=== PATIENT | female | born 1990 | race Caucasian/White ===

== ENCOUNTER 2018-07-27 21:01 | Emergency (ER) | payer SELFPAY ==
[~2018-07-27] VITALS: Ht 165.1 cm; Wt 79.4 kg
[2018-07-27 21:06] VITALS: BP 140/86
--- NOTE | 2018-07-27 21:10 | NUR ---
PT AMBULATED TO BED 9. ACCOMPANIED BY MOTHER.
--- NOTE | 2018-07-27 21:25 | NUR ---
PT TO ED WITH C/O BILATERAL THUMB REDNESS AND PAIN S/P POSSIBLE INSECT BITE. MILD REDNESS AND SWELLING NOTED TO BILATERAL THUMBS. +ROM. +CMS. PT PLACED INTO BED, PENDING MD NG.
[2018-07-27] MEDS ORDERED: KETOROLAC 60 MG/2 ML VIAL IM ONE (22:00)
[2018-07-27 22:33] VITALS: BP 134/71
--- NOTE | 2018-07-27 22:33 | NUR ---
Patient discharged with v/s stable. Written and verbal after care instructions given and explained. Patient alert, oriented and verbalized understanding of instructions. Ambulatory with steady gait. All questions addressed prior to discharge. ID band removed. Patient advised to follow up with PMD. Rx of KEFLEX, BACTRIM, MOTRIN given. Patient educated on indication of medication including possible reaction and side effects. Opportunity to ask questions provided and answered.
== END 2018-07-27 22:33 | disposition home or self-care (01) ==
LOC: MED 21:01
DX: L03.113 Cellulitis of right upper limb (principal)
CPT/HCPCS: 96372; 99283; J1885

== ENCOUNTER 2019-04-21 07:59 | Emergency (ER) | payer SELFPAY ==
[~2019-04-21] VITALS: Ht 165.1 cm; Wt 73.9 kg
--- NOTE | 2019-04-21 07:59 | NUR ---
PATIENT BIBA TO BED 9 AT [facility] THIS TIME.
[2019-04-21 08:00] VITALS: BP 157/92
--- NOTE | 2019-04-21 08:27 | NUR ---
BIB SELF C/O ANXIETY/ SOB S/P CRYSTAL METH USE 3 HOURS AGO. PATIENT IS TACHYPNEIC WITH SHALLOW RESPIRATION, SP02 100% RA. LUNG SOUNDS CLEAR IN BILAT LOBES, NO ACCESSORY MUSCLE USE ASSESSED. PATIENT IS QUIVERING IN BED AND STATES "IT IS HARD TO CATCH MY BREATH". PT INSTRUCTED TO BREATH IN THROUGH NOSE AND OUT THROUGH MOUTH USING CONTROLLED BREATHS. AAOX4. SKIN IS IN MOIST/IN TACT. NO PMH NKA
[2019-04-21] MEDS ORDERED: NACL 0.9% 1,000 ML IV SCH (08:46)
[2019-04-21] MEDS ORDERED: LORazepam 2 MG/ML VIAL IVP ONE (08:50)
--- NOTE | 2019-04-21 09:45 | NUR ---
PT IS TENSE AND REPORTS TO HAVING VISUAL HALLUCINATIONS. RE-EDUCATED PATIENT ON IMPORTANCE OF CONTROLLED BREATHING AND RELAXATION TECHNIQUES.
--- NOTE | 2019-04-21 10:24 | NUR ---
PT REPORTS ANXIETY HAS DECREASED. NO PAIN/ SOB REPORTED.
[2019-04-21 11:27] VITALS: BP 132/75
--- NOTE | 2019-04-21 11:28 | NUR ---
Patient discharged with v/s stable. Written and verbal after care instructions given and explained. Patient verbalized understanding. Wheel Chair Assisted with by caregiver. All questions addressed prior to discharge. Advised to follow up with PMD.
--- NOTE | 2019-04-25 08:25 | NUR ---
Late entry. Confirmed with RN that 0.9 NS IV completed at 1000
== END 2019-04-21 11:28 | disposition home or self-care (01) ==
LOC: MED 07:59
DX: F15.921 Other stimulant use, unspecified with intoxication delirium (principal); F41.9 Anxiety disorder, unspecified; R00.2 Palpitations
CPT/HCPCS: 81025; 96374; 99283; J2060; J7030

== ENCOUNTER 2021-04-08 13:55 | Observation (INO) | payer OTHER ==
[~2021-04-08] VITALS: Ht 162.6 cm; Wt 95.3 kg
[2021-04-08] MEDS ORDERED: PRETAB PO (14:21)
[2021-04-08 16:28] VITALS: BP 136/80
== END 2021-04-08 16:45 | disposition home or self-care (01) ==
LOC: MLD 13:55
PROVIDERS: ADMIT Obstetrics & Gynecology; ATTEND Obstetrics & Gynecology
DX: O34.63 Maternal care for abnormality of vagina, third trimester (principal); N89.8 Other specified noninflammatory disorders of vagina; Z3A.35 35 weeks gestation of pregnancy
CPT/HCPCS: 76815; G0378; G0379; Q0092

== ENCOUNTER 2021-04-11 12:03 | Observation (INO) | payer OTHER, SELFPAY ==
[~2021-04-11] VITALS: Ht 162.6 cm; Wt 100.7 kg
[~2021-04-11 12:03] MED LIST: PRETAB PO
[2021-04-11 12:45] VITALS: BP 132/85
[2021-04-11] MEDS ORDERED: cefTRIAXone 1,000 MG VIAL ONE (13:05)
[2021-04-11 14:55] LABS: BILIRUBIN,URINE NEGATIVE (NEGATIVE); BLOOD, URINE NEGATIVE (NEGATIVE); COLOR,URINE YELLOW (YELLOW); LEUKOCYTE ESTERASE ,URINE TRACE (NEGATIVE); NITRITE, URINE POSITIVE (NEGATIVE); UGLUCOSE NEGATIVE (NEGATIVE)
[2021-04-11 15:39] LABS: APPEARANCE,URINE HAZY (CLEAR)
[2021-04-11 15:51] LABS: RBC,URINE NONE SEEN /HPF (0-5); WBC,URINE 0-5 /HPF (0-5)
[2021-04-11 17:18] LABS: BASOPHILS % (AUTO) 0.3 % (0.0-2.0); EOSINOPHILS # (AUTO) 0.1 K/uL (0-0.4); HEMATOCRIT 32.6 % (36-48); HEMOGLOBIN 10.4 g/dL (12.0-16.0); LYMPHOCYTES # (AUTO) 1.9 K/uL (2.5-16.5); LYMPHOCYTES % (AUTO) 21.2 % (20.5-51.1); MEAN CORPUSCULAR HEMOGLOBIN 25 pg (27-31); MEAN CORPUSCULAR HGB CONC 32 g/dL (33-37); MONOCYTES % (AUTO) 10.8 % (1.7-9.3); NEUTROPHILS % (AUTO) 66.7 % (42.2-75.2); PLATELET COUNT (AUTO) 194 K/uL (140-450); RED BLOOD CELL COUNT(AUTO) 4.23 MIL/uL (4.20-5.40); RED CELL DISTRIBUTION WIDTH 17.3 % (11.6-13.7); WHITE BLOOD COUNT (AUTO) 9.1 K/uL (4.8-10.8)
[2021-04-11 18:04] LABS: PROTHROMBIN TIME 9.1 secs (10.8-13.4)
[2021-04-11 18:06] LABS: ALBUMIN 2.4 g/dL (3.4-5.0); CARBON DIOXIDE 25.5 mmol/L (21-32); CREATININE 0.5 mg/dL (0.6-1.3); POTASSIUM 3.5 mmol/L (3.5-5.1); TOTAL BILIRUBIN 0.2 mg/dL (0.0-1.0)
[2021-04-11 18:15] LABS: URINE TOTAL PROTEIN 30.5 mg/dL (0-12)
== END 2021-04-11 20:10 | disposition home or self-care (01) ==
LOC: MLD 12:03
PROVIDERS: ADMIT Obstetrics & Gynecology; ATTEND Obstetrics & Gynecology
DX: O23.43 Unspecified infection of urinary tract in pregnancy, third trimester (principal); Z20.822 Contact with and (suspected) exposure to COVID-19; O13.3 Gestational [pregnancy-induced] hypertension without significant proteinuria, third trimester; Z3A.35 35 weeks gestation of pregnancy
CPT/HCPCS: 36415; 59025; 76819; 80053; 81001; 82570; 84550; 85025; 85384; 85610; 85730; 87426; G0378; G0379; J0696; Q0092

== ENCOUNTER 2021-05-02 19:59 | Inpatient (IN) | payer OTHER, SELFPAY ==
[~2021-05-02] VITALS: Ht 162.6 cm; Wt 100.7 kg
[2021-05-02 21:06] LABS: BASOPHILS % (AUTO) 0.5 % (0.0-2.0); EOSINOPHILS # (AUTO) 0.1 K/uL (0-0.4); EOSINOPHILS % (AUTO) 0.6 % (0.0-4.0); HEMATOCRIT 32.2 % (36-48); HEMOGLOBIN 10.4 g/dL (12.0-16.0); LYMPHOCYTES # (AUTO) 2.4 K/uL (2.5-16.5); LYMPHOCYTES % (AUTO) 25.3 % (20.5-51.1); MEAN CORPUSCULAR HEMOGLOBIN 25 pg (27-31); MEAN CORPUSCULAR HGB CONC 32 g/dL (33-37); MEAN CORPUSCULAR VOLUME 78.2 fL (80-94); MONOCYTES # (AUTO) 0.8 K/uL (0.8-1.0); MONOCYTES % (AUTO) 8.8 % (1.7-9.3); NEUTROPHILS # (AUTO) 6.2 K/uL (1.8-7.7); NEUTROPHILS % (AUTO) 64.8 % (42.2-75.2); PLATELET COUNT (AUTO) 227 K/uL (140-450); RED BLOOD CELL COUNT(AUTO) 4.11 MIL/uL (4.20-5.40); RED CELL DISTRIBUTION WIDTH 19.1 % (11.6-13.7); WHITE BLOOD COUNT (AUTO) 9.5 K/uL (4.8-10.8)
[2021-05-02 21:06] LABS: APPEARANCE,URINE CLEAR (CLEAR); BILIRUBIN,URINE NEGATIVE (NEGATIVE); BLOOD, URINE NEGATIVE (NEGATIVE); COLOR,URINE YELLOW (YELLOW); LEUKOCYTE ESTERASE ,URINE TRACE (NEGATIVE); NITRITE, URINE NEGATIVE (NEGATIVE); PH,URINE 7.5 (5.0-9.0); UGLUCOSE NEGATIVE (NEGATIVE)
[2021-05-02] MEDS: LACTATED RINGERS 1,000 ML IV SCH (21:21)
[2021-05-02 21:24] LABS: BARBITURATE, URINE NEGATIVE ng/ml (NEG <=200); BENZODIAZEPINE, URINE NEGATIVE ng/mL (NEG <=200); CANNABINOID, URINE NEGATIVE ng/mL (NEG <=50); COCAINE, URINE NEGATIVE ng/mL (NEG <=300); OPIATE, URINE NEGATIVE ng/mL (NEG <=2000); PHENCYCLIDINE SCREEN,URINE NEGATIVE ng/mL (NEG <=25)
[2021-05-02 21:25] LABS: OTHER CASTS, URINE None Seen /LPF (None Seen); RBC,URINE 0 /HPF (0-5)
[2021-05-02 21:40] LABS: CREATININE 0.7 mg/dL (0.6-1.3); URIC ACID 4.6 mg/dL (2.6-7.2)
[2021-05-02 21:41] LABS: ALBUMIN 2.3 g/dL (3.4-5.0); ANION GAP 13.9 (8-16); CARBON DIOXIDE 25.1 mmol/L (21-32); CREATININE 0.7 mg/dL (0.6-1.3); TOTAL BILIRUBIN 0.2 mg/dL (0.0-1.0)
[2021-05-02] MEDS: MISOPROSTOL 25 MCG TAB VG SCH (23:06)
[2021-05-03] MEDS ORDERED: MORPHINE SULFATE 5 MG/ML VIAL IVP PRN (01:45)
[2021-05-03] MEDS ORDERED: ONDANSETRON 4 MG/2 ML VIAL IVP PRN (01:45)
[2021-05-03 02:08] VITALS: BP 134/81
[2021-05-03] MEDS: LACTATED RINGERS 1,000 ML IV SCH ×4 (04:10→22:08)
[2021-05-03] MEDS: MISOPROSTOL 25 MCG TAB VG SCH ×2 (05:58→12:20)
--- NOTE | 2021-05-03 16:28 | NUR ---
PATIENT HAS BEEN SCREENED AND CATEGORIZED LOW NUTRITION RISK. PATIENT WILL BE SEEN WITHIN 7 DAYS OF ADMISSION. 05/09/[address]
[2021-05-03 17:24] LABS: URINE TOTAL PROTEIN 4.1 mg/dL (0-12)
[2021-05-03] MEDS ORDERED: ROPIVACAINE 0.2%/NS PREMIX 200 ML EPI SCH (21:20)
[2021-05-04] MEDS: LACTATED RINGERS 1,000 ML IV SCH ×2 (06:14→14:07)
[2021-05-04] MEDS ORDERED: OXYTOCIN 20 UNITS/LR PREMIX 1,000 ML IV ONE (08:30)
[2021-05-04] MEDS ORDERED: ACETAMINOPHEN 325 MG TAB ONE (08:39)
[2021-05-04] MEDS: OXYTOCIN 20 UNITS in LACTATED RINGERS 1,000 ML IV SCH (08:48)
[2021-05-04] MEDS: ACETAMINOPHEN 325 MG TAB PO PRN ×2 (15:37→20:55)
[2021-05-05] MEDS: LACTATED RINGERS 1,000 ML IV SCH (07:50)
[2021-05-05] MEDS: OXYTOCIN 20 UNITS in LACTATED RINGERS 1,000 ML IV SCH (07:51)
[2021-05-05] MEDS ORDERED: PROPOFOL 200 MG/20 ML VIAL IV ONE (08:00)
[2021-05-05] MEDS ORDERED: ONDANSETRON 4 MG/2 ML VIAL ONE (08:00)
[2021-05-05] MEDS ORDERED: TERBUTALINE 1 MG/ML VIAL SUBQ SCH (10:10)
[2021-05-05] MEDS ORDERED: TERBUTALINE 1 MG/ML VIAL SUBQ ONE (10:10)
[2021-05-05] MEDS ORDERED: CITRIC ACID/SODIUM CITRATE 30 ML UDC PO SCH (10:35)
[2021-05-05] MEDS ORDERED: MORPHINE SULFATE 10 MG/ML VIAL ONE (10:52)
[2021-05-05 10:56] VITALS: BP 134/65
[2021-05-05] MEDS ORDERED: OXYTOCIN 20 UNITS/LR PREMIX 1,000 ML IV ONE (11:17)
[2021-05-05] MEDS ORDERED: MORPHINE PRES FREE 10 MG/10 ML AMP IV ONE (11:27)
[2021-05-05] MEDS ORDERED: LIDOCAINE/EPI MPF 2%1:200000 10 ML VIAL INJ ONE (11:27)
[2021-05-05] MEDS ORDERED: MEPERIDINE 25 MG/ML SYR ONE (11:48)
[2021-05-05] MEDS ORDERED: fentaNYL citrate 0.05 MG/ML VIAL ONE (11:48)
--- NOTE | 2021-05-05 12:01 | NUR ---
ATTENDED DELIVERY OF GIRL . BABY CAME OUT CRYING - NO DISTRESS NOTED - BABY MOVING ALL EXTREMITIES AFTER STIMULATION.
[2021-05-05] MEDS ORDERED: KETOROLAC 30 MG/ML VIAL IVP PRN ×2 (12:45→13:15)
[2021-05-05] MEDS ORDERED: MEASLES, MUMPS, AND RUBELLA 1 VIAL SQVAC ONE (12:45)
[2021-05-05] MEDS: OXYTOCIN 20 UNITS/LR PREMIX 1,000 ML IV ONE ×2 (13:07→13:28)
[2021-05-05] MEDS ORDERED: ONDANSETRON 4 MG/2 ML VIAL IVP PRN ×2 (13:15→14:15)
[2021-05-05] MEDS ORDERED: NALOXONE 0.4 MG/ML VIAL IVP PRN ×2 (13:15)
[2021-05-05] MEDS ORDERED: HYDROmorphone 1 MG/ML AMP IVP PRN (13:15)
[2021-05-05] MEDS: diphenhydrAMINE 50 MG/ML VIAL IVP PRN ×2 (15:51→21:30)
[2021-05-06] MEDS ORDERED: OXYTOCIN 20 UNITS/LR PREMIX 1,000 ML IV ONE ×2 (01:31→09:34)
[2021-05-06 05:56] LABS: BASOPHILS % (AUTO) 0.1 % (0.0-2.0); EOSINOPHILS % (AUTO) 0.3 % (0.0-4.0); HEMATOCRIT 25.5 % (36-48); HEMOGLOBIN 8.3 g/dL (12.0-16.0); LYMPHOCYTES # (AUTO) 1.3 K/uL (2.5-16.5); LYMPHOCYTES % (AUTO) 10.7 % (20.5-51.1); MEAN CORPUSCULAR HEMOGLOBIN 26 pg (27-31); MEAN CORPUSCULAR HGB CONC 33 g/dL (33-37); MEAN CORPUSCULAR VOLUME 77.7 fL (80-94); MONOCYTES # (AUTO) 0.8 K/uL (0.8-1.0); MONOCYTES % (AUTO) 6.5 % (1.7-9.3); NEUTROPHILS # (AUTO) 10.3 K/uL (1.8-7.7); NEUTROPHILS % (AUTO) 82.4 % (42.2-75.2); PLATELET COUNT (AUTO) 153 K/uL (140-450); RED BLOOD CELL COUNT(AUTO) 3.28 MIL/uL (4.20-5.40); RED CELL DISTRIBUTION WIDTH 19.3 % (11.6-13.7); WHITE BLOOD COUNT (AUTO) 12.5 K/uL (4.8-10.8)
[2021-05-06] MEDS: diphenhydrAMINE 50 MG/ML VIAL IVP PRN (09:41)
[2021-05-06] MEDS: oxyCODONE/APAP 5/325 MG 1 TAB TAB PO PRN ×2 (09:42→16:53)
[2021-05-06] MEDS: SIMETHICONE 80 MG TAB.CHEW PO PRN (09:42)
[2021-05-06] MEDS: SODIUM FERRIC GLUCONATE 125 MG in NACL 0.9% 100 ML IV SCH (12:10)
[2021-05-06] MEDS: IBUPROFEN 600 MG TAB PO SCH ×3 (12:31→23:55)
[2021-05-06] MEDS ORDERED: FERROUS GLUCONATE 324 MG TAB PO SCH (17:00)
[2021-05-07] MEDS: IBUPROFEN 600 MG TAB PO SCH ×2 (05:47→17:51)
[2021-05-07] MEDS: oxyCODONE/APAP 5/325 MG 1 TAB TAB PO PRN ×3 (08:56→21:02)
[2021-05-07] MEDS: SODIUM FERRIC GLUCONATE 125 MG in NACL 0.9% 100 ML IV SCH (11:05)
[2021-05-07] MEDS: SIMETHICONE 80 MG TAB.CHEW PO PRN (21:02)
[2021-05-07] MEDS ORDERED: CAMERA MC ONE (22:18)
[2021-05-08] MEDS: IBUPROFEN 600 MG TAB PO SCH ×5 (00:21→23:59)
[2021-05-08] MEDS: FERROUS SULFATE 325 MG TABEC PO SCH ×3 (08:59→18:11)
[2021-05-08] MEDS: bisacodyL 5 MG TABEC PO PRN (09:00)
[2021-05-08] MEDS: SIMETHICONE 80 MG TAB.CHEW PO PRN (09:00)
[2021-05-08 11:07] LABS: HEMATOCRIT 24.4 % (36-48); MEAN CORPUSCULAR HEMOGLOBIN 25 pg (27-31); MEAN CORPUSCULAR HGB CONC 33 g/dL (33-37); MEAN CORPUSCULAR VOLUME 77.5 fL (80-94); PLATELET COUNT (AUTO) 220 K/uL (140-450); RED BLOOD CELL COUNT(AUTO) 3.15 MIL/uL (4.20-5.40); WHITE BLOOD COUNT (AUTO) 11.2 K/uL (4.8-10.8)
[2021-05-08] MEDS: oxyCODONE/APAP 5/325 MG 1 TAB TAB PO PRN (16:44)
[2021-05-08 17:52] LABS: EOSINOPHILS % (MANUAL) 2 % (0-4); LYMPHOCYTES % (MANUAL) 12 % (20-46); MONOCYTES % (MANUAL) 8 % (5-12)
[2021-05-09] MEDS: IBUPROFEN 600 MG TAB PO SCH ×4 (06:14→23:57)
[2021-05-09] MEDS: ACETAMINOPHEN 325 MG TAB PO PRN ×2 (09:02→11:50)
[2021-05-09] MEDS: FERROUS SULFATE 325 MG TABEC PO SCH ×2 (09:02→17:16)
[2021-05-09] MEDS: bisacodyL 5 MG TABEC PO PRN (09:02)
[2021-05-09] MEDS ORDERED: GENTAMICIN PER PHARMACY MC PRN (13:00)
[2021-05-09] MEDS: CLINDAMYCIN 900 MG in DEXTROSE 5% 100 ML IV SCH ×2 (13:35→21:24)
--- NOTE | 2021-05-09 15:22 | NUR ---
05/09/21 RD INITIAL ASSESSMENT COMPLETED PLEASE REFER TO NUTRITION ASSESSMENT UNDER CARE ACTIVITY FOR ESTIMATED NUTRITIONAL NEEDS. 1. CONTINUE REGULAR DIET TOLERATED 2. INCREASED CALORIE/PROTEIN WOULD BE NEEDED FOR 3. RD TO FOLLOW-UP 7 DAYS, LOW RISK [address]
[2021-05-09 15:40] LABS: BASOPHILS # (AUTO) 0.1 K/uL (0.00-0.22); BASOPHILS % (AUTO) 0.8 % (0.0-2.0); EOSINOPHILS # (AUTO) 0.1 K/uL (0-0.4); EOSINOPHILS % (AUTO) 1.4 % (0.0-4.0); HEMATOCRIT 24.1 % (36-48); LYMPHOCYTES # (AUTO) 0.5 K/uL (2.5-16.5); LYMPHOCYTES % (AUTO) 5.1 % (20.5-51.1); MEAN CORPUSCULAR HEMOGLOBIN 26 pg (27-31); MEAN CORPUSCULAR HGB CONC 33 g/dL (33-37); MEAN CORPUSCULAR VOLUME 77.6 fL (80-94); MONOCYTES # (AUTO) 0.4 K/uL (0.8-1.0); MONOCYTES % (AUTO) 4.9 % (1.7-9.3); NEUTROPHILS % (AUTO) 87.8 % (42.2-75.2); PLATELET COUNT (AUTO) 222 K/uL (140-450); RED BLOOD CELL COUNT(AUTO) 3.11 MIL/uL (4.20-5.40); RED CELL DISTRIBUTION WIDTH 19.6 % (11.6-13.7); WHITE BLOOD COUNT (AUTO) 9.1 K/uL (4.8-10.8)
[2021-05-09] MEDS: GENTAMICIN 120 MG in DEXTROSE 5% 100 ML IV SCH ×2 (15:55→23:55)
[2021-05-09] MEDS ORDERED: ACETAMINOPHEN 100 ML IV ONE (17:47)
[2021-05-09] MEDS: ACETAMINOPHEN 100 ML IV SCH (18:46)
[2021-05-09] MEDS ORDERED: PIPERACILLIN/TAZOBACTAM 3.375 GM VIAL IV ONE (22:35)
[2021-05-09] MEDS: PIPERACILLIN/TAZOBACTAM 3.375 GM in DEXTROSE 5% 50 ML IV SCH (23:06)
[2021-05-10] MEDS: ACETAMINOPHEN 100 ML IV SCH ×2 (03:03→11:04)
[2021-05-10] MEDS ORDERED: PIPERACILLIN/TAZOBACTAM 3.375 GM VIAL IV ONE (04:43)
[2021-05-10] MEDS: PIPERACILLIN/TAZOBACTAM 3.375 GM in DEXTROSE 5% 50 ML IV SCH ×2 (04:57→11:06)
[2021-05-10] MEDS: IBUPROFEN 600 MG TAB PO SCH ×2 (05:59→11:47)
[2021-05-10] MEDS: CLINDAMYCIN 900 MG in DEXTROSE 5% 100 ML IV SCH (06:07)
[2021-05-10] MEDS: GENTAMICIN 120 MG in DEXTROSE 5% 100 ML IV SCH (08:03)
[2021-05-10] MEDS: FERROUS SULFATE 325 MG TABEC PO SCH (09:39)
[2021-05-10 10:16] LABS: BASOPHILS % (AUTO) 0.2 % (0.0-2.0); EOSINOPHILS # (AUTO) 0.1 K/uL (0-0.4); EOSINOPHILS % (AUTO) 1.4 % (0.0-4.0); HEMATOCRIT 25.3 % (36-48); HEMOGLOBIN 8.4 g/dL (12.0-16.0); LYMPHOCYTES # (AUTO) 0.7 K/uL (2.5-16.5); LYMPHOCYTES % (AUTO) 8.3 % (20.5-51.1); MEAN CORPUSCULAR HEMOGLOBIN 26 pg (27-31); MEAN CORPUSCULAR HGB CONC 33 g/dL (33-37); MEAN CORPUSCULAR VOLUME 77.6 fL (80-94); MONOCYTES # (AUTO) 0.5 K/uL (0.8-1.0); MONOCYTES % (AUTO) 5.9 % (1.7-9.3); NEUTROPHILS # (AUTO) 6.8 K/uL (1.8-7.7); NEUTROPHILS % (AUTO) 84.2 % (42.2-75.2); PLATELET COUNT (AUTO) 213 K/uL (140-450); RED BLOOD CELL COUNT(AUTO) 3.26 MIL/uL (4.20-5.40); RED CELL DISTRIBUTION WIDTH 20.2 % (11.6-13.7); WHITE BLOOD COUNT (AUTO) 8.1 K/uL (4.8-10.8)
[2021-05-10 11:07] LABS: ALBUMIN 1.7 g/dL (3.4-5.0); ANION GAP 15.2 (8-16); CREATININE 0.6 mg/dL (0.6-1.3); POTASSIUM 3.2 mmol/L (3.5-5.1); TOTAL BILIRUBIN 0.3 mg/dL (0.0-1.0)
== END 2021-05-10 12:15 | disposition home or self-care (01) | DRG 540 ==
LOC: MLD 19:59 → MFCC 22:19
PROVIDERS: ADMIT Obstetrics & Gynecology; ATTEND Obstetrics & Gynecology
PROC: 10D00Z1 Extraction of Products of Conception, Low, Open Approach (ICD-10-PCS; principal; 2021-05-09)
DX: O14.14 Severe pre-eclampsia complicating childbirth (principal); O85 Puerperal sepsis; O98.12 Syphilis complicating childbirth; O62.1 Secondary uterine inertia; A53.9 Syphilis, unspecified; O62.2 Other uterine inertia; Z20.822 Contact with and (suspected) exposure to COVID-19; O99.02 Anemia complicating childbirth; Z37.0 Single live birth; Z3A.38 38 weeks gestation of pregnancy
CPT/HCPCS: 36415; 51702; 59200; 76815; 80053; 80170; 80305; 81001; 82570; 82575; 83605; 84156; 84550; 85025; 85384; 85610; 85730; 86592; 86886; 86900; 86901; 87040; 87086; J0690; J1200; J1580; J1885; J2001; J2175; J2270; J2405; J2543; J2590; J2704; J2795; J2916; J3010; J3105; J3490; J7060; J7120; Q0092; U0003

== ENCOUNTER 2023-08-14 23:17 | Emergency (ER) | payer OTHER ==
[~2023-08-14] VITALS: Ht 165.1 cm; Wt 81.6 kg
[2023-08-14 23:25] VITALS: BP 160/94; PULSE 105; PULSE 113; RESP 20; TEMP 98; O2SAT 98
[2023-08-15] MEDS: LORazepam 2 MG/ML VIAL IM ONE (02:05)
[2023-08-15 02:39] VITALS: BP 138/90; PULSE 100; RESP 18; TEMP 98.1; O2SAT 98
== END 2023-08-15 02:39 | disposition home or self-care (01) ==
LOC: MED 23:17
DX: R06.4 Hyperventilation (principal); F41.9 Anxiety disorder, unspecified; Z79.899 Other long term (current) drug therapy
CPT/HCPCS: 96372; 99283; J2060